=== PATIENT | female | born 1985 | race Caucasian/White ===

== ENCOUNTER 2017-02-16 20:39 | Emergency (ER) | payer MEDICAID ==
[~2017-02-16] VITALS: Ht 157.5 cm; Wt 98.0 kg
[2017-02-16 20:42] VITALS: Ht 157.5 cm; Wt 98.0 kg
[2017-02-16] MEDS ORDERED: ALBUTEROL 0.083% (NEB) 2.5 MG/3 ML AMP HHN STA (22:04)
[2017-02-16] MEDS ORDERED: predniSONE 20 MG TAB PO ONE (22:30)
[2017-02-16] MEDS ORDERED: IPRATROPIUM (NEB) 0.5 MG/2.5 ML AMP HHN ONE (22:30)
[2017-02-16] MEDS ORDERED: PRED20TA PO (23:01)
--- NOTE | 2017-02-16 23:15 | ERA ---
ER Documentation Chief Complaint Date/Time DATE: 02/16/17 TIME: 23:04 Chief Complaint COUGH X 5 DAYS, SOB HAS ASTHMA INHALER DOESN'T HELP HPI 31-year-old female with history of asthma presents with a chief complaint of cough. Patient states that she has had asthma attacks in the past and this feels the same. Albuterol without relief. Patient denies chest pain, unilateral leg pain or swelling, fever, diaphoresis, abdominal pain, possible foreign body, rash, history of TX or other cardiac disease. Patient has no other complaints and describes no other associated manifestations. Nursing notes have been reviewed and are consistent with history given. ROS All systems reviewed and are negative except as per history of present illness. Medications Home Meds Active Scripts Prednisone* (Prednisone*) 20 Mg Tab, 60 MG PO DAILY for 4 Days, TAB Prov:JEOVANY MCRAE PA-C 02/16/17 Allergies Allergies: Coded Allergies: Penicillins (Verified Allergy, Severe, RASH, 05/07/08) Uncoded Allergies: SEA FOOD (Allergy, Mild, RASH, 05/07/08) PMhx/Soc History of Surgery: Yes (APPENDICITIS) Anesthesia Reaction: No Hx Neurological Disorder: No Hx Respiratory Disorders: Yes (ASTHMA) Hx Cardiac Disorders: No Hx Psychiatric Problems: No Hx Miscellaneous Medical Probl: No Hx Alcohol Use: No Hx Substance Use: No Hx Tobacco Use: No Smoking Status: Never smoker Physical Exam Vitals Vital Signs Date Time Temp Pulse Resp B/P Pulse Ox O2 Delivery O2 Flow Rate FiO2 02/16/17 22:22 98 20 98 21 02/16/17 20:42 98.3 96 20 140/85 97 Physical Exam Const: Healthy-appearing. Well-nourished. Well-developed. No acute distress. Pulm: Wheezing bilaterally in all lung andre, predominantly in upper lobes. No stridor, tripoding or drooling. Neck: No cervical lymphadenopathy, masses or goiter palpated. Trachea midline. Supple ~ No meningismus. Auscultation reviled good air movement and no bruits. Nose: Normal nose without discharge, septal deviation, or sinus tenderness. Cardio: Regular rate and rhythm; No murmurs, gallops or rubs auscultated. No JVD grossly observed. Radial and posterior tibial pulses 2+ bilaterally. No cyanosis. Capillary refill less than 2 seconds. Oral: No oral edema visualized. Mucous membranes moist and pink. Head: Normocephalic, Atraumatic. Eyes: Non-injected; No scleral erythema, discharge or foreign body. EOMI and MAIK bilaterally. Ears: Normal External Ears, EACs clear, TM normal bilaterally without erythema. Abd: Soft, non tender, non distended. No guarding, masses. Normal bowel sounds. No McBurney's point tenderness. MS: Normal motor strength, normal tone with gross examination. Skin: No petechiae or rashes. No ulcer, induration, jaundice. Good turgor. Back: No midline, flank or CVA tenderness. Ext: No cyanosis, edema or palpable cord. Normal movement of all extremities grossly observed. Neur: Awake, alert and oriented x3. Neurovascularly intact bilaterally. Psych: Normal Mood and Affect. Results 24 hrs Current Medications Medications (Trade) Dose Ordered Sig/Kathia Route PRN Reason Start Time Stop Time Status Last Admin Dose Admin Prednisone (Prednisone) 60 mg ONCE ONCE PO 02/16/17 22:30 02/16/17 22:31 DC 02/16/17 22:16 Albuterol (Proventil 0.083% (Neb)) 5 mg ONCE STAT HHN 02/16/17 22:04 02/16/17 22:06 DC 02/16/17 22:18 Ipratropium [place] (Atrovent 0.02% (Neb)) 0.5 mg ONCE ONCE HHN 02/16/17 22:30 02/16/17 22:31 DC 02/16/17 22:19 Procedures/MDM Patient was evaluated and worked up for shortness of breath as described in the history and physical exam. The history provided no identifiable exacerbating triggers of patients known asthma. The differential diagnosis is vast and includes, but is not limited to the following: asthma, pneumonia, bronchitis, bronchiolitis, epiglottis, acute urticaria, foreign body, etc. RT was consulted, and oxygen, 5 mg albuterol and Ipratropium one hour continuous nebulization was ordered. After reevaluation, the patients symptoms had improved and the lungs were clear to auscultation with no crackles, wheezing or any extra respiratory effort. The current most likely diagnosis is asthma exacerbation. At this time, I have little suspicion for pulmonary embolism, pneumonia, CHF, acute cardiac disorders , foreign body obstruction, allergic reaction, angioedema, or other obstructive disorders. I have presented the case to my attending who agrees with the assessment and plan. The patients vitals are stable. Following treatment, I no longer have a suspicion for endangerment of the airway. Their current status is appropriate for discharge. Patient will be discharged at this time with discharge instructions and return precautions. Prescriptions for continued out-patient therapy will include the following: Prednisone p.o. 4 days. After thorough patient education, they have verbally responded that they understand the treatment plan and proper use of medications. Departure Diagnosis: Primary Impression: Asthma Qualified Code: J45.998 - Mild asthma, unspecified whether complicated, unspecified whether persistent Condition: Stable Patient Instructions: Asthma Medications Additional Instructions: Follow up with your PCP within the next 1-3 days for a more thorough evaluation and a possible referral to a specialist. Return the the emergency department immediately if symptoms worsen or change. If you have any questions regarding medications, ask your pharmacist or us before you leave. If any adverse reactions occur while taking your medications, discontinue the treatment and return to the emergency department immediately. Take your medications as directed, and complete the entire course of treatment. JEOVANY MCRAE PA-C Feb 16, 2017 23:14
[2017-02-16] MEDS ORDERED: ALBU2.5V3 NEB (23:18)
[2017-02-16] MEDS ORDERED: ALBU8.5H3 INH (23:19)
[2017-02-16 23:35] VITALS: BP 149/81; PULSE 92; RESP 20
== END 2017-02-16 23:37 | disposition home or self-care (01) ==
LOC: FTE 20:39
DX: J45.998 Other asthma (principal)
CPT/HCPCS: 94664; J7512; Z7502; Z7610